=== PATIENT | male | born 1950 | race African-American/Black ===

== ENCOUNTER 2018-02-14 10:12 | Observation (INO) ==
[2018-02-14 10:34] VITALS: RESP 16
[2018-02-14 11:01] LABS: Baso # (Auto) 0.1 th/mm3 (0.0-0.2); Baso % (Auto) 0.9 % (0.0-2.0); Eos # (Auto) 0.1 th/mm3 (0.0-0.4); Hematocrit 44.2 % (39.0-51.0); Hemoglobin 14.3 gm/dL (13.0-17.0); Lymph # (Auto) 1.6 th/mm3 (1.0-4.8); Lymph % (Auto) 24.1 % (9.0-44.0); Mean Corpuscular HGB Conc 32.3 % (32.0-36.0); Mean Corpuscular Hemoglobin 27.2 pg (27.0-34.0); Mean Corpuscular Volume 84.1 fL (80.0-100.0); Mean Platelet Volume 10.6 fL (7.0-11.0); Mono # (Auto) 0.5 th/mm3 (0.0-0.9); Mono % (Auto) 7.5 % (0.0-8.0); Neut # (Auto) 4.5 th/mm3 (1.8-7.7); Neut % (Auto) 66.5 % (16.0-70.0); Platelet Count 131 th/mm3 (150-450); Red Blood Count 5.25 mil/mm3 (4.50-5.90); Red Cell Distribution Width 13.7 % (11.6-17.2); White Blood Count 6.8 th/mm3 (4.0-11.0)
--- NOTE | 2018-02-14 11:28 | XR ---
EXAM DATE: 02/14/2018 10:27 AM EDT AGE/SEX: 67 years / Male INDICATIONS: Chest pain CLINICAL DATA: This is the patient's initial encounter. Patient reports that signs and symptoms have been present for 1 day and indicates a pain score of 3/10. MEDICAL/SURGICAL HISTORY: Hypertension. None. COMPARISON: . FINDINGS: A single AP view of the chest demonstrates the lungs to be symmetrically aerated without evidence of mass, infiltrate or effusion. The cardiomediastinal contours are unremarkable. Osseous structures a re intact. CONCLUSION: No acute cardiopulmonary process. Electronically signed by: Rolando Lynn MD 02/14/2018 11:27 AM EDT
[2018-02-14 11:36] LABS: Alanine Aminotransferase 20 U/L (12-78); Albumin 4.1 g/dL (3.4-5.0); Anion Gap 10 meq/L (5-15); Aspartate Aminotransferase 19 U/L (15-37); Blood Urea Nitrogen 12 mg/dL (7-18); Calcium 8.8 mg/dL (8.5-10.1); Carbon Dioxide 25.2 meq/L (21.0-32.0); Chloride 108 meq/L (98-107); Glomerular Filtration Rate 56 mL/min (>89); Glucose,Random 86 mg/dL (74-106); Lipase 77 U/L (73-393); Sodium 143 meq/L (136-145)
[2018-02-14 11:40] LABS: Alkaline Phosphatase 56 U/L (45-117); Total Protein 7.7 g/dL (6.4-8.2)
--- NOTE | 2018-02-14 11:44 | ED ---
HPI General Chief Complaint: Chest Pain Stated Complaint: Chest Pain Time Seen by Provider: 02/14/18 10:27 Source: patient Mode of arrival: ambulatory Limitations: no limitations History of Present Illness HPI narrative: The patient 67 years old and arrives with chest pain. It is located retrosternal and radiates to the right neck. He reports the onset occurred this morning while he was shopping issues. He then went to Thursday school and it persisted and therefore activated EMS. Quality is heaviness. The patient has a history of high blood pressure. He denies hyperlipidemia and diabetes. He does not smoke. He denies coronary artery disease history. He denies exertional component. No pleuritic component. No fever or cough. He reports significant personal stress over the past couple months. Normally follows at the [place]. MD complaint: Reports chest pain STEMI Alert: No Related Data Home Medications Medication Instructions Recorded Confirmed No Known Home Medications 02/14/18 02/14/18 Allergies Allergy/AdvReac Type Severity Reaction Status Date / Time No Known Allergies Allergy Verified 02/14/18 10:21 Review of Systems ROS: all other systems reviewed are negative [facility] Medical History Medical History HBP (high blood pressure) (Acute) Prostate cancer (Acute) Surgical History Surgical History Hx of eye surgery (Acute) Social History Social History Substance History: Past History Second Hand Smoke Exposure: No Smoking Status: Former smoker Tobacco Type: Cigarettes How Often Do You Have a Drink Containing Alcohol: Monthly or less Recent Travel in [facility] within the Last 8 Weeks: No Recent Out of Country Travel within the Last 8 Weeks: No Immunization History Tetanus Immunization: >5 Years Exam Narrative Exam Narrative: GENERAL: 67-year-old male well-nourished well-developed no acute distress SKIN: Focused skin assessment warm/dry. HEAD: Atraumatic. Normocephalic. EYES: Pupils equal and round. No scleral icterus. No injection or drainage. ENT: No nasal bleeding or discharge. Mucous membranes pink and moist. NECK: Trachea midline. No JVD. CARDIOVASCULAR: Regular rate and rhythm. No murmur appreciated. RESPIRATORY: No accessory muscle use. Clear to auscultation. Breath sounds equal bilaterally. GASTROINTESTINAL: Abdomen soft, non-tender, nondistended. Hepatic and splenic margins not palpable. MUSCULOSKELETAL: No obvious deformities. No clubbing. No cyanosis. No edema. NEUROLOGICAL: Awake and alert. No obvious cranial nerve deficits. Motor grossly within normal limits. Normal speech. PSYCHIATRIC: Appropriate mood and affect; insight and judgment normal. Course Initial Documented Vital Signs Temperature 97.9 F 02/14/18 10:21 Pulse Rate 75 02/14/18 10:21 Respiratory Rate 16 02/14/18 10:21 Blood Pressure 155/77 H 02/14/18 10:21 Pulse Oximetry 98 02/14/18 10:21 Last Documented Vital Signs Temperature 97.8 F 02/14/18 11:40 Pulse Rate 67 02/14/18 11:40 Respiratory Rate 16 02/14/18 11:40 Blood Pressure 146/84 H 02/14/18 11:40 Pulse Oximetry 99 02/14/18 11:40 Medical Decision Making MDM Narrative Medical Screen Exam Complete: Yes Emergency Medical Condition: Yes Differential Diagnosis Differential Diagnosis: Chest pain center considered reasonable next step for this patient's evaluation. He is agreeable with it. He reports resolution of pain at 11:40 AM. Lab Data Lab results reviewed: Yes I reviewed the patient's lab results. Lab results narrative: Tn < 0.02 Result diagrams: 02/14/18 10:30 02/14/18 10:30 Lab Results 02/14/18 02/14/18 02/14/18 Range/Units 10:30 10:30 10:30 WBC 6.8 (4.0-11.0) th/mm3 RBC 5.25 (4.50-5.90) mil/mm3 Hgb 14.3 (13.0-17.0) gm/dL Hct 44.2 (39.0-51.0) % MCV 84.1 (80.0-100.0) fL MCH 27.2 (27.0-34.0) pg MCHC 32.3 (32.0-36.0) % RDW 13.7 (11.6-17.2) % Plt Count 131 L (150-450) th/mm3 MPV 10.6 (7.0-11.0) fL Prelim Diff (Auto) Slide review pending Neut % (Auto) 66.5 (16.0-70.0) % Lymph % (Auto) 24.1 (9.0-44.0) % Darke % (Auto) 7.5 (0.0-8.0) % Eos % (Auto) 1.0 (0.0-4.0) % Baso % (Auto) 0.9 (0.0-2.0) % Neut # (Auto) 4.5 (1.8-7.7) th/mm3 Lymph # (Auto) 1.6 (1.0-4.8) th/mm3 Darke # (Auto) 0.5 (0.0-0.9) th/mm3 Eos # (Auto) 0.1 (0.0-0.4) th/mm3 Baso # (Auto) 0.1 (0.0-0.2) th/mm3 WBC Differential . Diff Scan Auto diff confirmed Differential Comment . Sodium 143 (136-145) meq/L Potassium 4.0 (3.5-5.1) meq/L Chloride 108 H (98-107) meq/L Carbon Dioxide 25.2 (21.0-32.0) meq/L Anion Gap 10 (5-15) meq/L BUN 12 (7-18) mg/dL Creatinine 1.28 (0.60-1.30) mg/dL Estimated GFR 56 L (>89) mL/min Random Glucose 86 (74-106) mg/dL Calcium 8.8 (8.5-10.1) mg/dL Total Bilirubin 0.5 (0.2-1.0) mg/dL AST 19 (15-37) U/L ALT 20 (12-78) U/L Alkaline Phosphatase 56 (45-117) U/L Troponin I Less than 0.02 L (0.02-0.05) ng/mL B-Natriuretic Peptide 14 (0-100) pg/mL Total Protein 7.7 (6.4-8.2) g/dL Albumin 4.1 (3.4-5.0) g/dL Lipase 77 (73-393) U/L Imaging Data Radiologist's impression: Chest X-Ray 02/14/18 10:27 CONCLUSION: No acute cardiopulmonary process. ECG Data Attestation: I personally reviewed and interpreted this ECG as follows: Discharge Plan Discharge Disposition Patient Disposition: 30 Still Patient Physicians Team ED Provider: Cesario Phillips Rxs /Orders / Referrals /Forms Prescriptions: No Action No Known Home Medications RF: 0 Discharge Instructions Patient Printed Instructions: Chest Pain (ED) Discharge Interventions Interventions: Vital Signs Last Done: 02/14/18 11:40 Status ED Status: With Doctor
[2018-02-14 13:49] VITALS: BP 147/76
--- NOTE | 2018-02-14 13:56 | P.HPCA ---
History of Present Illness Primary Care Physician: [facility] Chief Complaint: Chest pain History of Present Illness: 67 year old male with history of prostate cancer and hypertension presents to ER for further evaluation of chest pain. Onset 0900 while shining his shoes, getting ready for [employer]. Location substernal. Characterized as a quick onset of sharp, shooting pain reoccurring each second for 30 minutes. Mild to moderate in severity. No associated symptoms of nausea, vomiting, shortness of breath, or diaphoresis. [place] somewhat dizziness and a little nervous. No radiation. Discomfort resolved therefore proceeded to [employer] cath[employer]. Chest discomfort returned about 1000 in Thursday school, this time more severe with associated diaphoreses and radiation to midback. Related diaphoresis due to being nervous because "I thought I was having a heart attack." Denies similar pain in the past. No known CAD, hyperlipidemia, or diabetes. No past cardiac testing. Unable to recall name of antihypertensive medication prescribed. Prostate cancer in remission. 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 Receives an injection every 6 weeks to prevent any further metastasis. Does not recall name of injection. No recent illness, fever, or injury. Suspects discomfort may be related to eating a lot of snacks foods yesterday while watching football. History of GERD, denies ever taking anti-acids or medication for GERD symptoms, states "I just deal with it (GERD). " No burning sensation in esophagus or chest. No history of DVT, recent travel, or asthma. Past cardiac testing None Social history Known hypertension. No known hyperlipidemia, diabetes, or CAD. Former "social smoker." Quitting all tobacco 8 years ago. No alcohol use. No recreational drug use, endorse past drug abuse, clean for 10 years. . Active, rides bicycle daily due to the fact he is legally blind. Retired [employer] in [employer]. Recently moved to [place] from [place]. Family history Noncontributory for early onset cardiovascular disease. Both parents before he was 5 years ago. Father from complications from miliary injuries. Unclear how mother , possibility from cirrhoses due to an alcohol addiction. - Diagnosis (1) Chest pain of uncertain etiology (2) Hypertension Review of Systems All other systems reviewed negative except as stated in HPI PMFSH - History History Provided By: Patient - Medical History Medical History: Medical History (Last Updated 02/14/18 @ 15:05 by NESSA Gage) HBP (high blood pressure) Hepatitis C Legally blind Metastatic carcinoma to lung Prostate cancer - Surgical History Surgical History: Surgical History (Last Updated 02/14/18 @ 14:35 by NESSA Gage) History of lung surgery Hx of eye surgery - Social History I have reviewed the patient's Social History: Yes - Tobacco History Second Hand Smoke Exposure: No Tobacco Use In Past 30 Days: No Smoking Status: Former smoker (former "social smoker" quit 8 years ago) Tobacco Type: Cigarettes - Alcohol History How Often Do You Have a Drink Containing Alcohol: Monthly or less - Substance Use History Substance History: Past History - Travel History History of Recent Travel: No Recent Travel in the [place] Within the Last 8 Weeks: No Recent Travel Out of the Country Within the Last 8 Weeks: No - Immunization History Tetanus Immunization: >5 Years Medications and Allergies Active Medications: Active Medications Sodium Chloride (Ns Flush) 2 ml IV.FLUSH UNSCH PRN PRN Reason: FLUSH AFTER USING IV ACCESS Last Admin: 02/14/18 10:43 Dose: 2 ml Allergies Allergy/AdvReac Type Severity Reaction Status Date / Time No Known Allergies Allergy Verified 02/14/18 10:21 Home Medications Medication Instructions Recorded Confirmed Type No Known Home Medications 02/14/18 02/14/18 History Exam Vital signs: Vital Signs 02/14/18 10:21 02/14/18 10:27 02/14/18 10:34 Temperature 97.9 F 97.7 F Pulse Rate 75 69 71 Respiratory Rate 16 16 Blood Pressure 155/77 H 148/81 H Pulse Oximetry 98 100 99 02/14/18 11:40 02/14/18 11:51 Temperature 97.8 F 97.7 F Pulse Rate 67 69 Respiratory Rate 16 16 Blood Pressure 146/84 H 141/88 H Pulse Oximetry 99 98 Intake & Output 02/13/18 02/14/18 02/14/18 18:59 06:59 18:59 Weight 113.398 kg Narrative: GENERAL: Alert WN, WD, NAD, pleasant, obese, -Hond[place] male HEAD: NC, AT NECK: Supple, no masses, trachea midline CV: RRR, without murmur, rub, gallop, no JVD, S1-S2 no S3-S4. No carotid or femoral bruits. Chest wall nontender to palpation. RESP: Clear lungs throughout bilateral, no crackles, wheeze, rhonchi, symmetrical chest rise, nonlabored, able to speak in full sentences ABD: Soft, NT, ND, no masses, positive bowel tones EXT: Pulses +2x4, no dependent edema MS: Normal tone x4 extremities, nontender, no obvious deformities, full range of motion NEURO: CN II through CN XII grossly intact, motor strength 5/5 PSYCH: A+O x3, pleasant affect, appropriate speech, mood, insight and judgment SKIN: Normal turgor, normal texture, no lesions, no rashes, brisk cap refill, even hair distribution Results 02/14/18 10:30 02/14/18 10:30 Cardiac Enzymes 02/14/18 02/14/18 Range/Units 10:30 10: AST 19 (15-37) U/L Troponin I Less than 0.02 L (0.02-0.05) ng/mL B-Natriuretic Peptide 14 (0-100) pg/mL Coagulation 02/14/18 Range/Units 10:30 B-Natriuretic Peptide 14 (0-100) pg/mL CBC 02/14/18 Range/Units 10:30 WBC 6.8 (4.0-11.0) th/mm3 RBC 5.25 (4.50-5.90) mil/mm3 Hgb 14.3 (13.0-17.0) gm/dL Hct 44.2 (39.0-51.0) % Plt Count 131 L (150-450) th/mm3 Neut # (Auto) 4.5 (1.8-7.7) th/mm3 Lymph # (Auto) 1.6 (1.0-4.8) th/mm3 [place] # (Auto) 0.5 (0.0-0.9) th/mm3 Eos # (Auto) 0.1 (0.0-0.4) th/mm3 Baso # (Auto) 0.1 (0.0-0.2) th/mm3 Comprehensive Metabolic Panel 02/14/18 Range/Units 10:30 Sodium 143 (136-145) meq/L Potassium 4.0 (3.5-5.1) meq/L Chloride 108 H (98-107) meq/L Carbon Dioxide 25.2 (21.0-32.0) meq/L BUN 12 (7-18) mg/dL Creatinine 1.28 (0.60-1.30) mg/dL Calcium 8.8 (8.5-10.1) mg/dL AST 19 (15-37) U/L ALT 20 (12-78) U/L Alkaline Phosphatase 56 (45-117) U/L Total Protein 7.7 (6.4-8.2) g/dL Albumin 4.1 (3.4-5.0) g/dL Intake and Output 02/13/18 02/14/18 02/14/18 22:59 06:59 14:59 Other: Weight 113.398 kg Patient Weight 02/15/18 06:59 Weight 113.398 kg - Imaging and Cardiology Imaging: Impressions Chest X-Ray 02/14/18 10:27 CONCLUSION: No acute cardiopulmonary process. EKG interpretations - EKG EKG results cardiology: sinus rhythm, normal axis, normal QRS (nonspecific t wave flattening) Caprini VTE Risk Assessment Caprini VTE Risk Assessment: Moderate/High Risk (score >= 2) Caprini Risk Assessment Model: Point Value = 1 Point Value = 2 Point Value = 3 Point Value = 5 Age 41-60 Minor surgery BMI > 25 kg/m2 Swollen legs Varicose veins or History of unexplained or recurrent spontaneous Oral contraceptives or hormone replacement Sepsis (< 1 month) Serious lung disease, including pneumonia (< 1 month) Abnormal pulmonary function Acute myocardial infarction Congestive heart failure (< 1 month) History of inflammatory bowel disease Medical patient at bed rest Age 61-74 Arthroscopic surgery Major open surgery (> 45 min) Laparoscopic surgery (> 45 min) Malignancy Confined to bed (> 72 hours) Immobilizing plaster cast Central venous access Age >= 75 History of VTE Family history of VTE Factor V Leiden Prothrombin [id number] Lupus anticoagulant Anticardiolipin antibodies Elevated serum homocysteine Heparin-induced thrombocytopenia Other congenital or acquired thrombophilia Stroke (< 1 month) Elective arthroplasty Hip, pelvis, or leg fracture Acute spinal cord injury (< 1 month) Prophylaxis Regimen: Total Risk Factor Score Risk Level Prophylaxis Regimen 0-1 Low Early ambulation 2 Moderate Order ONE of the following: *Sequential Compression Device (SCD) *Heparin 5000 units SQ BID 3-4 Higher Order ONE of the following medications: *Heparin 5000 units SQ TID *Enoxaparin/Lovenox 40 mg SQ daily (WT < 150 kg, CrCl > 30 mL/min) *Enoxaparin/Lovenox 30 mg SQ daily (WT < 150 kg, CrCl > 10-29 mL/min) *Enoxaparin/Lovenox 30 mg SQ BID (WT < 150 kg, CrCl > 30 mL/min) AND/OR *Sequential Compression Device (SCD) 5 or more Highest Order ONE of the following medications: *Heparin 5000 units SQ TID (Preferred with Epidurals) *Enoxaparin/Lovenox 40 mg SQ daily (WT < 150 kg, CrCl > 30 mL/min) *Enoxaparin/Lovenox 30 mg SQ daily (WT < 150 kg, CrCl > 10-29 mL/min) *Enoxaparin/Lovenox 30 mg SQ BID (WT < 150 kg, CrCl > 30 mL/min) AND *Sequential Compression Device (SCD) Assessment and Plan - Assessment (1) Chest pain of uncertain etiology Code(s): R07.89 - Other chest pain Status: Acute Plan: Admitted chest pain center. Seen and evaluated by Dr. Robbie Schmidt. Rule out ACS with 2 sets of EKGs and cardiac enzymes. If second troponin and EKG unchanged, plan to proceed with exercise cardiac testing this afternoon. If stress testing unremarkable, plan to discharge home this evening with follow up at the [facility]. Verbalized understanding and agreeable to plan of care. (2) Hypertension Code(s): I10 - Essential (primary) hypertension Status: Chronic Plan: Continue to monitor. Consider amlodipine 5mg po x1 dose. Likely upon discharge will continue his home antihypertensive medication as previously instructed. Discussed importance of tight blood pressure control and adapting dietary lifestyles to include low sodium options. (2) Hypertension Qualifiers: Hypertension type: essential hypertension Qualified Code(s): I10 - Essential (primary) hypertension
[2018-02-14 14:52] VITALS: PULSE 70; TEMP 97.7; O2SAT 98
[2018-02-14 14:54] LABS: Creatine Kinase 287 U/L (39-308)
--- NOTE | 2018-02-17 06:59 | TR ---
Date Performed: 02/14/2018 Time Performed: 16:02:56 DOCTOR: Skylar Lee DRUG LIST: CLINICAL HISTORY: CHEST PAIN REASON FOR TEST: REASON FOR ENDING: OBSERVATION: CONCLUSION: Ed protocol completed. Stopped sec to leg fatigue and exceeding target heart rate . Maximum GJ=637 Max HR Achieved=93.0% Maximum WS=765/82 Total Exercise Time=3:56. No reprod chest di [place]. Reported fatigue at peak with slight dyspnea. Rare PVC. No st t segment changes. Normal bp response. Poor exercise tolerance. Recovery quick and unremarkable. No ischemia on ETT COMMENTS: No ischemia on ETT
--- NOTE | 2018-02-17 06:59 | ECG ---
Date Performed: 02/14/2018 Time Performed: 10:29:33 PTAGE: 67 years EKG: Sinus rhythm WITH SINUS ARRHYTHMIA BORDERLINE LEFT AXIS DEVIATION NONSPECIFIC T-WAVE ABNORMALITY BORDERLINE ECG NO PREVIOUS TRACING DOCTOR: Skylar Lee Interpretating Date/Time 02/17/2018 06:57:17
--- NOTE | 2018-02-17 06:59 | ECG ---
Date Performed: 02/14/2018 Time Performed: 13:47:24 PTAGE: 67 years EKG: Sinus rhythm BORDERLINE LEFT AXIS DEVIATION BORDERLINE ECG Since PREVIOUS TRACING , no significant change noted DOCTOR: Skylar Lee Interpretating Date/Time 02/17/2018 06:57:08
== END 2018-02-14 17:34 | disposition home or self-care (01) ==
LOC: NEDA 10:12 → NEPC 10:12 → NEPHCDU 14:30